=== PATIENT | female | born 1980 | race Caucasian/White ===

== ENCOUNTER → 2021-03-16 | Outpatient (CLI) | payer BC ==
[~2021-03-16] MED LIST: CATHETER FLUSH 10 ML SYR IV PRN; HOLD METFORMIN - RECEIVED CONTRAST 20 ML VIAL IV SCH; IOHEXOL 350 MG/ML 100 ML (OMNIPAQUE 350) VIAL IV ONE; NS 100 ML (IVPB) BAG IV ONE
--- NOTE | 2021-03-16 11:35 | Diagnostic Imaging Report ---
EXAMINATION: CT Abdomen with and without intravenous contrast. TECHNIQUE: Precontrast acquisitions were acquired through the abdomen . Multiple contiguous axial images were obtained through the abdomen after the administration of intravenous contrast. All CT scans use one or more of the following dose optimizing techniques: automated exposure control, MA and/or KvP adjustment based on a patient size and exam type, or iterative reconstruction. HISTORY: RUQ PAIN COMPARISON: None available. FINDINGS: Lung bases: The lung bases are clear. Solid organs: The liver is normal without focal lesion. The gallbladder is surgically absent. There is no biliary ductal dilation. Pancreas is normal. Spleen is normal. Adrenal glands are normal. Kidneys are unremarkable without visualized calculus, hydronephrosis, or suspicious enhancing lesion. 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 No bowel obstruction. Peritoneum: There is no intraperitoneal free fluid or free air. No suspicious lymphadenopathy. Vasculature: Normal without aneurysm. Musculoskeletal: No suspicious osseous lesion or compression fracture. IMPRESSION: 1. No acute abnormality in the abdomen. Dictated by: Dictated on workstation # [id number]
== END ==
LOC: RAD FS 08:59
PROVIDERS: ATTEND Family Medicine
DX: R10.11 Right upper quadrant pain (principal); Z98.84 Bariatric surgery status
CPT/HCPCS: 74170

== ENCOUNTER 2022-05-26 22:41 | Emergency (ER) | payer BC ==
[~2022-05-26] VITALS: Ht 170.1 cm; Wt 98.4 kg
[2022-05-26 22:43] VITALS: BP 143/86
--- NOTE | 2022-05-26 22:56 | ED Lower Extremity ---
General Chief Complaint: Lower Extremity Stated Complaint: L ANKLE PAIN Nursing Triage Note: Patient states that she was walking and rolled her left ankle. Patient states that it did pop. History of Present Illness Date Seen by Provider: May 26, 2022 Time Seen by Provider: 22:56 Initial Comments 42-year-old female is here with complaints of left ankle pain and swelling after she was watching fireworks and she stepped on the edge of the grass and the pavement and rolled her ankle. Patient has some difficulty bearing weight on that foot. Denies sensory loss, head strike or LOC. Allergies and Home Medications Allergies Coded Allergies: No Allergy Information Available (Unverified , 03/16/21) Patient Home Medication List Home Medication List Reviewed: Yes Review of Systems Constitutional: no symptoms reported EENTM: no symptoms reported Respiratory: no symptoms reported Cardiovascular: no symptoms reported Gastrointestinal: no symptoms reported Musculoskeletal: joint swelling Skin: no symptoms reported Psychiatric/Neurological: No Symptoms Reported Past Fmyggun-Cimxls-Yvwntt Hx Patient Social History Tobacco Use?: No Substance use?: No Alcohol Use?: No Pt feels they are or have been: No Physical Exam Vital Signs Vital Signs - First Documented 05/26/22 22:43 Temp 37.0 Pulse 110 Resp 18 B/P (MAP) 143/86 (105) Pulse Ox 99 O2 Delivery Room Air Capillary Refill : Less Than 3 Seconds Height, Weight, BMI Height: '" Weight: lbs. oz. kg; 34.00 BMI Method: General Appearance: WD/WN, no apparent distress HEENT: PERRL/EOMI Neck: full range of motion Knees: left knee non-tender, left knee normal inspection, left knee normal range of motion, left knee no evidence of injury Ankles: left ankle ecchymosis (mild), left ankle limited range of motion (due to pain), left ankle soft tissue tenderness, left ankle swelling (over lateral malleolus area) Feet: left foot non-tender, left foot normal inspection, left foot normal range of motion, left foot no evidence of injury Neurologic/Psychiatric: no motor/sensory deficits, alert, normal mood/affect, oriented x 3 Skin: normal color Progress/Results/Core Measures Results/Orders My Orders Orders - NISREEN PRUITT MD Ankle 3 View Left (05/26/22 22:45) Vital Signs/I&O 05/26/22 22:43 Temp 37.0 Pulse 110 Resp 18 B/P (MAP) 143/86 (105) Pulse Ox 99 O2 Delivery Room Air Blood Pressure Mean: 105 Progress Progress Note : Progress Note LEFT ANKLE STRAIN: - XR LEFT ANKLE: no fracture - Ankle air cast and crutches - Ice/ NSAID as needed for pain/ elevate legs - Follow up with Ortho clinic. Call for appointment: Dr Horner's office: [phone] Departure Impression Primary Impression: Left ankle strain Qualified Codes: S96.912A - Strain of unspecified muscle and tendon at ankle and foot level, left foot, initial encounter Disposition: HOME, SELF-CARE Condition: Stable Departure-Patient Inst. Referrals: HENRY BAIRD MD (PCP/Family) Primary Care Physician Patient Instructions: Ankle Sprain ED Add. Discharge Instructions: - Ankle air cast and crutches - Ice/ NSAID as needed for pain/ elevate legs - Follow up with Ortho clinic. Call for appointment: Dr Horner's office: [phone] All discharge instructions reviewed with patient and/or family. Voiced understanding. NISREEN PRUITT MD May 26, 2022 22:56
--- NOTE | 2022-05-26 23:02 | Diagnostic Imaging Report ---
INDICATION: Pain. COMPARISON: None available. TECHNIQUE: Three radiographs of the left ankle dated May 26, 2022. FINDINGS: No acute fracture or dislocation. No destructive osseous process. The talar dome is unremarkable. Ankle mortise is symmetric. No evidence of tarsal coalition. IMPRESSION: No acute osseous abnormality. Dictated by: Dictated on workstation # [id number]
== END 2022-05-26 23:07 | disposition home or self-care (01) ==
LOC: EDUNIT# 22:41 → ER FS 22:42
DX: S96.912A Strain of unspecified muscle and tendon at ankle and foot level, left foot, initial encounter (principal); Z28.310 Unvaccinated for COVID-19; X50.1XXA Overexertion from prolonged static or awkward postures, initial encounter
CPT/HCPCS: 73610